=== PATIENT | female | born 1970 | race African-American/Black ===

== ENCOUNTER 2016-12-05 06:21 | Emergency (ER) | payer SELFPAY ==
--- NOTE | 2016-12-05 07:27 | ER Document Report ---
HPI - HPI Patient complains to provider of: cold symptoms Onset: Other - Monday Onset/Duration: Gradual Quality of pain: Achy Pain Level: 4 Context: 46-year-old nonsmoker female complaining of myalgias, head congestion, fever to 100 last night. Rare cough. No nausea vomiting or diarrhea. No chest pain or shortness of breath. She's been taking Eda-Dresher dmwe-ijn-nhablin. She takes her lisinopril at night for hypertension. Associated Symptoms: None Exacerbated by: Denies Relieved by: Denies Similar symptoms previously: Yes Recently seen / treated by doctor: No Notes: Works at the [employer] plant - ROS ROS below otherwise negative: Yes Systems Reviewed and Negative: Yes All other systems reviewed and negative - CONSTITUTIONAL Constitutional: REPORTS: Fever, Chills - EENT EENT: REPORTS: Sore Throat, Nasal Drainage-Clear - REPRODUCTIVE LMP: Currently on her period Reproductive: DENIES: : - DERM Skin Color: Normal Skin Problems: None - NURSING COMMENTS Comment: Pt states that she has had "cold like symptoms" since this Monday. States that she has had chills and subjective fever. Denies any hx of asthma. Pt is AAOX3 with NAD noted at this time. Past Medical History - General Information source: Patient - Social History Smoking Status: Never Smoker Cigarette use (# per day): No Chew tobacco use (# tins/day): Yes Frequency of alcohol use: None Drug Abuse: None Lives with: Family Family History: Hypertension - Past Medical History Cardiac Medical History: Reports: Hx Hypertension Renal/ Medical History: Denies: Hx Peritoneal Dialysis Past Surgical History: Reports: Hx Section, Hx Tubal Ligation - Immunizations Hx Diphtheria, Pertussis, Tetanus Vaccination: Yes Vertical Provider Document - CONSTITUTIONAL Agree With Documented VS: Yes Exam Limitations: No Limitations - INFECTION CONTROL TRAVEL OUTSIDE OF THE [place] IN LAST 30 DAYS: No - HEENT HEENT: PERRLA, Pharyngeal Erythema - Minimal. negative: Conjuctival Injection, Pharyngeal Exudate, Tympanic Membrane Red, Tympanic Membrane Bulging - NECK Neck: Supple. negative: Lymphadenopathy-Left, Lymphadenopathy-Right - RESPIRATORY Respiratory: Breath Sounds Normal, No Respiratory Distress O2 Sat by Pulse Oximetry: 97 - CARDIOVASCULAR Cardiovascular: Regular Rate, Regular Rhythm - GI/ABDOMEN Gastrointestinal: Abdomen Soft, Abdomen Non-Tender - MUSCULOSKELETAL/EXTREMETIES Musculoskeletal/Extremeties: MAEW, FROM - NEURO Level of Consciousness: Awake, Alert - DERM Integumentary: Warm, Dry, No Rash Course - Vital Signs Vital signs: Temp Pulse Resp BP Pulse Ox 98.1 F 71 16 144/96 H 97 12/05/16 06:26 12/05/16 06:26 12/05/16 06:26 12/05/16 06:26 12/05/16 06:26 Discharge - Discharge Clinical Impression: Upper respiratory infection Qualifiers: URI type: unspecified viral URI Qualified Code(s): J06.9 - Acute upper respiratory infection, unspecified; B97.89 - Other viral agents as the cause of diseases classified elsewhere Condition: Good Disposition: HOME, SELF-CARE Instructions: Acetaminophen, Upper Respiratory Illness ([facility]), Fever ([facility]), Use of Mtio-Nrs-Fmmpelu Ibuprofen ([facility]) Additional Instructions: Rest Plenty of fluids Coolmist humidifier, wash it daily Return to the emergency room if worse Stop taking Eda-Dresher because it has somewhat [place] Get iizk-trr-fojlsxu Mucinex or generic brand Forms: Return to Work
[2016-12-05 07:39] VITALS: BP 140/90
== END 2016-12-05 07:34 | disposition home or self-care (01) ==
LOC: ER 06:21
DX: J06.9 Acute upper respiratory infection, unspecified (principal); B97.89 Other viral agents as the cause of diseases classified elsewhere; M79.1 Myalgia; R09.81 Nasal congestion; R50.9 Fever, unspecified; R05 Cough
CPT/HCPCS: 99283